=== PATIENT | female | born 1975 | race Caucasian/White ===

== ENCOUNTER 2017-06-27 13:21 | Emergency (ER) | payer BC ==
[2017-06-27 15:14] VITALS: BP 161/113
--- NOTE | 2017-06-27 15:37 | UC ---
Throat Pain/Nasal Kei HPI - HPI Summary HPI Summary: Patient presents with an unremarkable past medical history. She presents with one day onset sudden throat pain, with swelling, redness and pain. Se states the pain is now radiating to her right ear. She is able to eat, drink and handle her won secretions, She denies fever, chills, chest pain, cough, sputum production, abdominal pain, nausea, vomiting, or diarrhea. - History of Current Complaint Chief Complaint: UCGeneralIllness Stated Complaint: SORE THROAT Time Seen by Provider: 06/27/17 15:25 Hx Obtained From: Patient Hx Last Menstrual Period: iud ?: No Onset/Duration: Sudden Onset, Lasting Hours Severity: Mild Pain Intensity: 6 Cough: Nonproductive Associated Signs & Symptoms: Positive: Negative - Epiglottits Risk Factors Epiglottis Risk Factors: Negative - Allergies/Home Medications Allergies/Adverse Reactions: Allergies Allergy/AdvReac Type Severity Reaction Status Date / Time No Known Allergies Allergy Verified 06/27/17 15:13 Home Medications: Home Medications Oxcarbazepine [Trileptal 600 MG tab] 600 mg PO DAILY 06/27/17 [History Confirmed 06/27/17] Rizatriptan (NF) [Maxalt(NF)] 5 mg PO BID PRN 06/27/17 [History Confirmed ] Valsartan TAB* [Diovan TAB*] 160 mg PO DAILY 06/27/17 [History Confirmed ] PMH/Surg Hx/FS Hx/Imm Hx Previously Healthy: Yes - Surgical History Surgical History: Yes Surgery Procedure, Year, and Place: C section - Family History Known Family History: Positive: None - Social History Occupation: Employed Full-time Lives: Alone Alcohol Use: Rare Substance Use Type: None Smoking Status (MU): Never Smoked Tobacco Review of Systems Constitutional: Negative Skin: Negative Eyes: Negative ENT: Sore Throat, Ear Ache Respiratory: Negative Cardiovascular: Negative Gastrointestinal: Negative Genitourinary: Negative Motor: Negative Neurovascular: Negative Musculoskeletal: Negative Neurological: Negative Psychological: Negative Is Patient Immunocompromised?: No All Other Systems Reviewed And Are Negative: Yes Physical Exam Triage Information Reviewed: Yes Appearance: Well-Appearing Vital Signs: Initial Vital Signs Temp 98.8 F 06/27/17 15:09 Pulse 96 06/27/17 15:09 Resp 18 06/27/17 15:09 BP 161/113 06/27/17 15:09 Pulse Ox 100 06/27/17 15:09 Vital Signs Reviewed: Yes Eye Exam: Normal ENT: Positive: Pharyngeal erythema, Tonsillar swelling Neck exam: Normal Neck: Positive: 1 Respiratory Exam: Normal Cardiovascular Exam: Normal Abdominal Exam: Normal Musculoskeletal Exam: Normal Neurological Exam: Normal Psychological Exam: Normal Skin Exam: Normal Throat Pain/Nasal Course/Dx - Course Course Of Treatment: Patient presents with an unremarkable past medical history , Complains of throat pain, rapid strep was positive. She was hemodynamically stable, with normal vital signs. RX PenVK 500 mg by mouth qid x 10 days. Told to rest, increae fluids, take tylenol and advil for pain and/or fever. Follow up with PCP if symptoms persist. - Differential Dx/Diagnosis Differential Diagnosis/HQI/PQRI: Other - strep throat Provider Diagnoses: strep throat Discharge - Discharge Plan Condition: Stable Disposition: HOME Prescriptions: Fluconazole 100 MG TAB* [Diflucan 100 MG TAB*] 100 mg PO DAILY #1 tab Penicillin VK TAB* [Penicillin VK 250 mg Tab*] 500 mg PO QID #40 tab Patient Education Materials: Strep Throat (DC) Referrals: Yasmine Hunt, [employer] [Primary Care Provider] -
== END 2017-06-27 16:11 | disposition home or self-care (01) ==
LOC: UCEAST 13:21
DX: J02.0 Streptococcal pharyngitis (principal)
CPT/HCPCS: 87651; 99202; G0463

== ENCOUNTER 2017-10-11 12:32 | Emergency (ER) | payer BC ==
[2017-10-11 13:04] VITALS: BP 150/99
--- NOTE | 2017-10-11 13:34 | UC ---
Complaint Female HPI - HPI Summary HPI Summary: 41 year old with UTI Sx for 2 weeks . No fever. having increased frequency and urgency which is the only Sx she gets with UTI Start new med 3 weeks ago for mental health concerns. No other SE from med - History Of Current Complaint Chief Complaint: UCGU Stated Complaint: URINARY ISSUE Time Seen by Provider: 10/11/17 13:13 Hx Obtained From: Patient Hx Last Menstrual Period: iud Onset/Duration: Gradual Onset Timing: Constant Pain Intensity: 0 Related Hx: Similar Episode/Dx as: - Allergies/Home Medications Allergies/Adverse Reactions: Allergies Allergy/AdvReac Type Severity Reaction Status Date / Time No Known Allergies Allergy Verified 10/11/17 13:05 PMH/Surg Hx/FS Hx/Imm Hx Previously Healthy: Yes Psychological History: Bipolar Disorder - Surgical History Surgical History: Yes Surgery Procedure, Year, and Place: C section - Family History Known Family History: Positive: None - Social History Occupation: Employed Full-time Alcohol Use: Rare Substance Use Type: None Smoking Status (MU): Never Smoked Tobacco Review of Systems Genitourinary: Dysuria, Frequency, Urgency Is Patient Immunocompromised?: No All Other Systems Reviewed And Are Negative: Yes Physical Exam Triage Information Reviewed: Yes Appearance: Well-Appearing, No Pain Distress, Well-Nourished Vital Signs: Initial Vital Signs Temp 98.7 F 10/11/17 13:02 Pulse 45 10/11/17 13:02 Resp 15 10/11/17 13:02 BP 150/99 10/11/17 13:02 Pulse Ox 99 10/11/17 13:02 Vital Signs Reviewed: Yes Neck: Positive: 1 Respiratory Exam: Normal Cardiovascular Exam: Normal Abdominal Exam: Normal Abdomen Description: Positive: Nontender, No Organomegaly, Soft. Negative: CVA Tenderness (R), CVA Tenderness (L), Distended, Guarding Musculoskeletal Exam: Normal Neurological Exam: Normal Psychological Exam: Normal Skin Exam: Normal Complaint Female Dx - Course Course Of Treatment: UTI -- treat at this time and f/u with PCP or [employer] for re eval. treat based on Sx. if any red flags like incontince go to ED. no red flags. related to recent latuda ? unlikely treat at this time as she has had these sx previously which was UTI. she is aware of SE of antibiotics - Differential Dx/Diagnosis Differential Diagnosis/HQI/PQRI: Urinary Tract Infection Provider Diagnoses: UTI Discharge - Sign-Out/Discharge Documenting (check all that apply): Discharge/Admit/Transfer - Discharge Plan Condition: Good Disposition: HOME Prescriptions: Nitrofurantoin Monohyd/M-Cryst [Macrobid 100 mg Capsule] 100 mg PO BID 7 Days # 14 cap Patient Education Materials: Urinary Tract Infection in Women (ED) Referrals: Yasmine Hunt [facility] [employer] [facility] [Primary Care Provider] - 4 Days - Billing Disposition and Condition Condition: GOOD Disposition: HOME
== END 2017-10-11 14:24 | disposition home or self-care (01) ==
LOC: UCEAST 12:32
DX: N39.0 Urinary tract infection, site not specified (principal)
CPT/HCPCS: 81003; 99212; G0463